=== PATIENT | female | born 2000 | race Caucasian/White ===

== ENCOUNTER 2022-10-15 07:23 | Inpatient (IN) | payer OTHER, MEDICAID, SELFPAY ==
[2022-10-15] VITALS (126 sets, daily range): BP systolic 83–154; BP diastolic 39–133; PULSE 70–139; RESP 16–20; TEMP 36.7–37.4; O2SAT 81–100; BMI 23.4
[2022-10-15] MEDS: LACTATED RINGERS 1,000 ML 125 ML IV CONT ×3 (08:10→15:30)
[2022-10-15] MEDS: AMPICILLIN 2 GM/NS 100 ML 2 GM/100 ML BAG IVPB (08:10)
[2022-10-15] MEDS: TERBUTALINE SULFATE 1 MG/ML VIAL 0.25 MG SUB-Q (08:19)
[2022-10-15 08:21] LABS: Basophils Absolute Auto 0.1 K/mm3 (0.0-0.1); Basophils Percent Auto 0.4 % (0.2-1.2); Eosinophils Absolute Auto 0.1 K/mm3 (0-0.3); Eosinophils Percent Auto 0.4 % (0-4.4); Hematocrit 41.9 % (37.0-47.0); Hemoglobin 14.5 g/dL (12.0-15.0); Immature Granulocyte Absolute 0.15 K/mm3 (0.00-0.031); Immature Granulocyte Percent A 0.8 % (0-0.5); Immature Platelet Fraction Pct 20.1 % (0.9-11.2); Lymphocytes Absolute Auto 1.59 K/mm3 (0.9-3.2); Mean Corpuscular HGB Conc 34.6 g/dl (32-36); Mean Corpuscular Volume 89.5 fl (80-100); Mean Platelet Volume 12.9 fl (7.4-10.4); Monocytes Absolute Auto 0.6 K/mm3 (0.1-0.6); Monocytes Percent Auto 3.2 % (2.6-8.5); Neutrophils Absolute Auto 17.5 K/mm3 (1.3-6.7); Neutrophils Percent Auto 87.2 % (45.5-73.1); Platelet Count Result 165 k/mm3 (150-375); Red Blood Count 4.68 M/mm3 (4.2-5.4)
[2022-10-15] MEDS: BETAMETHASONE SOD PHOS/ACETATE 30 MG/5 ML VIAL 12 MG IM (08:25)
--- NOTE | 2022-10-15 08:55 | PM.IMHP ---
H&P: HPI History of Present Illness Date/Time: 10/15/22 0855 Chief Complaint: Contractions Narrative: 22 y/o G1 with LMP 02/10/22 giving a due date of 11/17/22, consistent with 12 weeks ultrasound, putting her at 35 2/7 weeks today. She is a patient of a Dr. Smith in [place], and planned to deliver at [facility]. She began to have painful contractions around 7 this morning, so she came to the closest hospital. I am customer relations coordinator for walk-in patients. She says her has been uncomplicated, that she doesn't have HTN or DM. She has not had a GBS culture yet. Contractions have persisted despite IV fluids and a dose of terbutaline. She had received prophylactic ampicillin as well as a dose of betamethasone IM. Review of Systems Review of Systems: All systems reviewed & are unremarkable except as noted in HPI and below [facility] Surgical History Surgical History History of tonsillectomy Social History Social History Smoking status: Never smoker Substance use: never Lack of Transportation: No Lack of Food: Never True Current Housing: I Have Housing Concerned About Future Housing: No Difficulty Paying Gas/Electric Bills: No Difficulty Paying for Meds: No Currently Unemployed: No Education: Bachelor's Degree Difficulty w/ Childcare or Family Care: No Spiritual care concerns: No Meds Home Medications and Allergies Home Medications Medication Instructions Recorded Confirmed Type docusate sodium 100 mg capsule 325 mg PO 10/15/22 History ferrous sulfate 325 mg (65 mg 325 mg 10/15/22 History iron) tablet (FeroSul) Allergies Allergy/AdvReac Type Severity Reaction Status Date / Time No Known Allergies Allergy Verified 10/15/22 08:06 Vital Signs Vital Signs - 24 hr 10/15/22 08:16 10/15/22 08:21 10/15/22 08:26 Temperature Pulse Rate Respiratory Rate Blood Pressure Pulse Oximetry 100 100 100 10/15/22 08:31 10/15/22 08:36 10/15/22 08:41 Temperature Pulse Rate Respiratory Rate Blood Pressure Pulse Oximetry 100 100 100 10/15/22 07:47 10/15/22 08:46 10/15/22 09:35 Temperature 37.1 C Pulse Rate 123 H 116 H Respiratory Rate Blood Pressure 133/84 136/76 Pulse Oximetry 100 10/15/22 09:44 10/15/22 09:45 10/15/22 09:50 Temperature Pulse Rate 116 H Respiratory Rate Blood Pressure 149/96 H Pulse Oximetry 100 87 L 10/15/22 09:50 10/15/22 09:51 10/15/22 09:56 Temperature Pulse Rate Respiratory Rate Blood Pressure Pulse Oximetry 87 L 98 100 10/15/22 10:01 10/15/22 10:06 10/15/22 10:11 Temperature Pulse Rate 119 H 129 H Respiratory Rate Blood Pressure 124/61 115/61 Pulse Oximetry 100 100 100 10/15/22 10:12 10/15/22 10:14 10/15/22 10:16 Temperature Pulse Rate 139 H 120 H Respiratory Rate Blood Pressure 93/44 L 83/43 L Pulse Oximetry 100 10/15/22 10:17 10/15/22 10:18 10/15/22 10:20 Temperature Pulse Rate 108 H 99 105 H Respiratory Rate Blood Pressure 111/45 L 128/69 118/59 L Pulse Oximetry 10/15/22 10:21 10/15/22 10:22 10/15/22 10:25 Temperature Pulse Rate 106 H 108 H Respiratory Rate Blood Pressure 116/64 117/65 Pulse Oximetry 100 10/15/22 10:26 10/15/22 10:31 10/15/22 10:36 Temperature Pulse Rate 109 H 105 H Respiratory Rate Blood Pressure 86/69 L 122/48 L Pulse Oximetry 100 100 100 10/15/22 10:41 10/15/22 10:45 10/15/22 10:46 Temperature Pulse Rate 124 H 105 H Respiratory Rate Blood Pressure 136/58 L 107/53 L Pulse Oximetry 100 100 10/15/22 10:51 10/15/22 10:55 10/15/22 10:56 Temperature Pulse Rate 105 H 116 H Respiratory Rate Blood Pressure 115/56 L 100/39 L Pulse Oximetry 100 100 10/15/22 11:00 10/15/22 11:05 10/15/22 11:06 Temperature 36.8 C Pulse Rate 100 100 Resp
[2022-10-15 09:22] LABS: HIV 1/2 Ab P24 Ag Result Negative (Negative)
[2022-10-15 09:31] LABS: Hepatitis B Surface Antigen Negative (Negative)
[2022-10-15 09:32] LABS: Rubella IgG Antibody > 120.0 IU/ML
[2022-10-15 09:34] LABS: Appearance Urine Cloudy (Clear); Bacteria Urine None Seen /hpf; Bilirubin Urine Negative (Negative); Blood Urine 2+ (Negative); Color Urine Yellow (Yellow); Glucose Urine UA Negative (Negative); Ketones Urine Trace mg/dL (Negative); Leukocyte Esterase Ur 2+ LEU/UL (Negative); Nitrate Urine Negative (Negative); Non Pathogenic Casts 0-2; Protein Urine 1+ mg/dL (Negative); RBC Urine 21-50 /hpf (0-2); Specific Grav Ur 1.023 (1.001-1.035); Squamous Epithelial Cell Urine Occasional /hpf (Few); WBC Urine 21-50 /hpf
[2022-10-15 09:39] LABS: Add Urine Microscopic? YES
--- NOTE | 2022-10-15 09:41 | WPDANESEPP ---
Anes - Eval Pre Procedure Procedure: Labor epidural Date/Time: 10/15/22 09:41 Surgeon: Ana Paula Preop Diagnosis: Pain during labor Pre Op Diagnosis: Contractions Patient Data Age: 22 Gender: F Height: Weight: Last Vital Signs Temp 37.1 C 10/15/22 07:47 Pulse 116 H 10/15/22 09:35 BP 136/76 10/15/22 09:35 Pulse Ox 100 10/15/22 08:46 Allergies Allergy/AdvReac Type Severity Reaction Status Date / Time No Known Allergies Allergy Verified 10/15/22 08:06 Laboratory Tests 10/15/22 10/15/22 10/15/22 08:10 08:10 08:10 WBC 20.0 K/mm3 H K/mm3 (4.5-10.0) RBC 4.68 M/mm3 M/mm3 (4.2-5.4) Hgb 14.5 g/dL g/dL (12.0-15.0) Hct 41.9 % % (37.0-47.0) MCV 89.5 fl fl (80-100) MCH 31.0 pg pg (26-34) MCHC 34.6 g/dl g/dl (32-36) RDW 13.0 % % (11.5-14.5) Plt Count 165 k/mm3 k/mm3 (150-375) MPV 12.9 fl H fl (7.4-10.4) Immature Gran % (Auto) 0.8 % H % (0-0.5) Neut % (Auto) 87.2 % H % (45.5-73.1) Lymph % (Auto) 8.0 % L % (18.3-44.2) Placer % (Auto) 3.2 % % (2.6-8.5) Eos % (Auto) 0.4 % % (0-4.4) Baso % (Auto) 0.4 % % (0.2-1.2) Lymph # (Auto) 1.59 K/mm3 K/mm3 (0.9-3.2) Placer # (Auto) 0.6 K/mm3 K/mm3 (0.1-0.6) Eos # (Auto) 0.1 K/mm3 K/mm3 (0-0.3) Baso # (Auto) 0.1 K/mm3 K/mm3 (0.0-0.1) Abs Immat Gran (auto) 0.15 K/mm3 H K/mm3 (0.00-0.031) Absolute Neuts (auto) 17.5 K/mm3 H K/mm3 (1.3-6.7) Absolute Nucleated RBC 0.0 K/mm3 K/mm3 (0.0-0.012) Nucleated RBC % 0.0 % % (0.0-0.2) % Immature Plt Fraction 20.1 % H % (0.9-11.2) Urine Color Urine Appearance Urine pH Ur Specific [place] Urine Protein Urine Glucose (UA) Urine Ketones Ur Blood (Man) Urine Nitrate Urine Bilirubin Urine Urobilinogen Leukocyte Esterase Rfl Urine RBC Urine WBC Ur Squamous Epith Cells Urine Bacteria Urine Casts Urine Opiates Screen Urine Methadone Screen Ur Barbiturates Screen Ur Phencyclidine Scrn Ur Amphetamine Screen U Benzodiazepines Scrn Urine Cocaine Screen U Cannabinoids Screen RPR Pending Hep Bs Antigen Negative (Negative) HIV 1&2 Ab/P24 Ag 4thGn Rubella IgG Antibody > 120.0 IU/ML IU/ML (10 - ) Blood Type Antibody Screen 10/15/22 10/15/22 10/15/22 08:10 08:10 09:19 WBC RBC Hgb Hct MCV MCH MCHC RDW Plt Count MPV Immature Gran % (Auto) Neut % (Auto) Lymph % (Auto) [place] % (Auto) Eos % (Auto) Baso % (Auto) Lymph # (Auto) [place] # (Auto) Eos # (Auto) Baso # (Auto) Abs Immat Gran (auto) Absolute Neuts (auto) Absolute Nucleated RBC Nucleated RBC % % Immature Plt Fraction Urine Color Yellow (Yellow) Urine Appearance Cloudy H (Clear) Urine pH 8.0 (5.0-9.0) Ur Specific [place] 1.023 (1.001-1.035) Urine Protein 1+ mg/dL H mg/dL (Negative) Urine Glucose (UA) Negative mg/dL mg/dL (Negative) Urine Ketones Trace mg/dL mg/dL (Negative) Ur Blood (Man) 2+ H (Negative) Urine Nitrate Negative (Negative) Urine Bilirubin Negative (Negative) Urine Urobilinogen 1.0 mg/dL m
[2022-10-15 09:44] LABS: Rapid Plasma Reagin Non-Reactive (NonReactive)
[2022-10-15 09:55] LABS: Amphetamine Screen Urine Negative (Negative); Barbiturate Screen Urine Negative (Negative); Benzodiazepines Screen Urine Negative (Negative); Cannabinoid Screen Urine Negative (Negative); Cocaine Screen Urine Negative (Negative); Methadone Screen Urine Negative (Negative); Opiate Screen Urine Negative (Negative); Phencyclidine Screen Urine Negative (Negative)
--- NOTE | 2022-10-15 10:40 | LDADM ---
This patient, Kristin Yap, was admitted to Labor/Delivery/Recovery 107 on 10/15/22 at 07:23. Plans for labor, pain management and were discussed with patient. Patient/family oriented to hospital policies and general routines including ID bracelet, bed and alarms, visiting hours, pain management, procedures, bathroom and other care routines, personal items, smoking policy, room service/diet and guest tray routines, security routines, and visiting hours. Patient/Family are encouraged to report perceived risks to care and to ask questions if they do not understand what they are told or what they should do. See OBIX for further documentation.
[2022-10-15] MEDS: AMPICILLIN 1 GM/NS 50 ML 1 GM/50 ML BAG IVPB (12:10)
--- NOTE | 2022-10-15 13:05 | PM.OBPNLAB ---
Pain Control Date/time seen: 10/15/22 13:05 Now comfortable with epidural. She just asked whether the baby was still sideways. AVSS NST good variability TOCO: contractions every 2-5 min Cervix 4-5/90/-1. AROM with clear fluid. IUPC placed. Bedside ultrasound by me confirms vertex presentation. A: Labor at 35 2/7 weeks. P: Continue present management. Augment labor as needed.
[2022-10-15] MEDS: OXYTOCIN 30 UNITS/NS 500 ML 30 UNITS/500 ML BAG 999 UNITS IV CONT (15:57)
--- NOTE | 2022-10-15 16:03 | PM.OBPRVD ---
OB - Delivery Note Procedure Delivery date: 10/15/22 Procedure: Delivery augmentation: Rupture of Membranes Delivery monitor: External FHT, External Uterine and Internal Uterine Route of delivery: Laceration Description: None Specimen: Yes (cord blood, placenta) Quantitative Blood Loss (ml): 120 Anesthesia type: Epidural Disposition: PACU Complications: None Narrative: 22 y/o G1 at 35 4/7 weeks gestation who presented to the hospital with contractions. Labor was diagnosed. She was given ampicillin. She received an epidural for pain control. Amniotomy was performed with return of clear fluid. Her labor progressed and her cervix dilated completely. She pushed with good effort and delivered the 's head to the perineum, followed by the body. The nose and mouth were bulb suctioned. After a delay, the cord was clamped and cut. The was handed off the field. Cord blood was collected. The placenta delivered spontaneously and was grossly normal in appearance. The usual 3 vessel cord was noted. There were no lacerations. Needle and instrument counts were correct. The patient was taken to recovery room in stable condition. The went to the nursery in stable condition. I was present and scrubbed for the entire delivery. Baby Date of : 10/15/22 Time of : 15:53 Weeks of gestation at delivery: 35 Infant gender: Female Weight (pounds): 5 Weight (ounces): 6 presentation: vertex position: Left Occiput Anterior Placenta delivery description: Spontaneous and Normal Configuration Cord Vessel Description: 3 Vessels and Delayed Cord Clamping score one minute: 9 score five minutes: 9
--- NOTE | 2022-10-15 16:04 | PM.OBDSVD ---
DS: Admitting Diagnosis Discharge Date 10/17/22 Admitting Diagnosis IUP at 35 weeks labor DS: Discharge Diagnosis Discharge Diagnosis (1) delivery, delivered: Code(s): O60.10X0 - labor with delivery, unspecified trimester, not applicable or unspecified Status: Acute (2) Gestational hypertension: Code(s): O13.9 - Gestational [-induced] hypertension without significant proteinuria, unspecified trimester Status: Acute OB - DS: Summary OB Procedures : NST, Ultrasound and PTL Mgmt OB Procedures Intrapartum: Spontaneous Vag Delivery and GBS prophylaxis OB Procedures: : None Time Spent with Patient Time attestation: Total time spent providing and/or coordinating discharge services: DS: Data Data Completed and Pending Labs on day of discharge: Labs from last 24 hours 10/15/22 10/15/22 10/15/22 09:19 09:19 08:10 WBC RBC Hgb Hct MCV MCH MCHC RDW Plt Count MPV Immature Gran % (Auto) Neut % (Auto) Lymph % (Auto) [place] % (Auto) Eos % (Auto) Baso % (Auto) Lymph # (Auto) [place] # (Auto) Eos # (Auto) Baso # (Auto) Abs Immat Gran (auto) Absolute Neuts (auto) Absolute Nucleated RBC Nucleated RBC % % Immature Plt Fraction Urine Color Yellow Urine Appearance Cloudy H Urine pH 8.0 Ur Specific [place] 1.023 Urine Protein 1+ H Urine Glucose (UA) Negative Urine Ketones Trace Ur Blood (Man) 2+ H Urine Nitrate Negative Urine Bilirubin Negative Urine Urobilinogen 1.0 Leukocyte Esterase Rfl 2+ H Urine RBC 21-50 H Urine WBC 21-50 Ur Squamous Epith Cells Occasional Urine Bacteria None seen Urine Casts 0-2 Urine Opiates Screen Negative Urine Methadone Screen Negative Ur Barbiturates Screen Negative Ur Phencyclidine Scrn Negative Ur Amphetamine Screen Negative U Benzodiazepines Scrn Negative Urine Cocaine Screen Negative U Cannabinoids Screen Negative RPR Hep Bs Antigen HIV 1&2 Ab/P24 Ag 4thGn Rubella IgG Antibody Blood Type B Positive Antibody Screen Negative 10/15/22 10/15/22 10/15/22 08:10 08:10 08:10 WBC RBC Hgb Hct MCV MCH MCHC RDW Plt Count MPV Immature Gran % (Auto) Neut % (Auto) Lymph % (Auto) [place] % (Auto) Eos % (Auto) Baso % (Auto) Lymph # (Auto) [place] # (Auto) Eos # (Auto) Baso # (Auto) Abs Immat Gran (auto) Absolute Neuts (auto) Absolute Nucleated RBC Nucleated RBC % % Immature Plt Fraction Urine Color Urine Appearance Urine pH Ur Specific [place] Urine Protein Urine Glucose (UA) Urine Ketones Ur Blood (Man) Urine Nitrate Urine Bilirubin Urine Urobilinogen Leukocyte Esterase Rfl Urine RBC Urine WBC Ur Squamous Epith Cells Urine Bacteria Urine Casts Urine Opiates Screen Urine Methadone Screen Ur Barbiturates Screen Ur Phencyclidine Scrn Ur Amphetamine Screen U Benzodiazepines Scrn Urine Cocaine Screen U Cannabinoids Screen RPR Non-reactive Hep Bs Antigen Negative HIV 1&2 Ab/P24 Ag 4thGn Negative Rubella IgG Antibody > 120.0 Blood Type Antibody Screen 10/15/22 08:10 WBC 20.0 H RBC 4.68 Hgb 14.5 Hct 41.9 MCV 89.5 MCH 31.0 MCHC 34.6 RDW 13.0 Plt Count 165 MPV 12.9 H Immature Gran % (Auto) 0.8 H Neut % (Auto) 87.2 H Lymph % (Auto) 8.0 L [place] % (Auto) 3.2 Eos % (Auto) 0.4 Baso % (Auto) 0.4 Lymph # (Auto) 1.59 [place] # (Auto) 0.6 Eos # (Auto) 0.1 Baso # (Auto) 0.1 Abs Immat Gran (auto) 0.15 H Absolute Neuts (auto) 17.5 H Absolute Nucleated RBC 0.0 Nucleated RBC % 0.0 % Immature Plt Fraction 20.1 H Urine Color Urine Appearance Urine pH Ur Specific [place] Urine Protein Urine Glucose (UA) Urine Ketones Ur Blood (Man)
[2022-10-15] MEDS: OXYTOCIN 30 UNITS/NS 500 ML 30 UNITS/500 ML BAG 125 UNITS IV CONT (16:30)
[2022-10-15] MEDS: BENZOCAINE 20% AER SPR (*SP) 56 GM CAN 1 SPRAY TOPICAL (19:01)
[2022-10-15] MEDS: WITCH HAZEL 40 PADS 1 PAD TOPICAL (19:01)
[2022-10-16] VITALS: BP 135/97; PULSE 87; RESP 18; TEMP 36.8; O2SAT 99
[2022-10-16 05:17] LABS: Basophils Absolute Auto 0.1 K/mm3 (0.0-0.1); Basophils Percent Auto 0.2 % (0.2-1.2); Eosinophils Absolute Auto 0.1 K/mm3 (0-0.3); Eosinophils Percent Auto 0.2 % (0-4.4); Hematocrit 34.3 % (37.0-47.0); Hemoglobin 11.8 g/dL (12.0-15.0); Immature Granulocyte Absolute 0.48 K/mm3 (0.00-0.031); Immature Granulocyte Percent A 1.6 % (0-0.5); Immature Platelet Fraction Pct 20.1 % (0.9-11.2); Lymphocytes Absolute Auto 1.53 K/mm3 (0.9-3.2); Lymphocytes Percent Auto 5.1 % (18.3-44.2); Mean Corpuscular HGB Conc 34.4 g/dl (32-36); Mean Corpuscular Hemoglobin 30.2 pg (26-34); Mean Corpuscular Volume 87.7 fl (80-100); Mean Platelet Volume 13.7 fl (7.4-10.4); Monocytes Absolute Auto 1.5 K/mm3 (0.1-0.6); Neutrophils Absolute Auto 26.3 K/mm3 (1.3-6.7); Neutrophils Percent Auto 87.9 % (45.5-73.1); Platelet Count Result 142 k/mm3 (150-375); Red Blood Count 3.91 M/mm3 (4.2-5.4); Red Cell Distribution Width 12.9 % (11.5-14.5); White Blood Count 29.9 K/mm3 (4.5-10.0)
[2022-10-16 05:42] LABS: Alanine Aminotransferase 16 U/L (6-35); Albumin Level 3.3 g/dL (3.5-5.1); Alkaline Phosphatase 161 U/L (38-126); Anion Gap 3 mmol/L (8-16); Aspartate Amino Transferase 33 U/L (14-36); Bilirubin,Total 0.6 mg/dL (0.2-1.3); Blood Urea Nitrogen 8 mg/dL (7-17); Calcium 9.5 mg/dL (8.4-10.2); Carbon Dioxide 24 mmol/L (22-30); Chloride 105 mmol/L (98-107); Estimated CRCL calculation 102 ml/min; Estimated Glomerular Filt Rate > 60; Glucose 108 mg/dL (65-110); Potassium 4.3 mmol/L (3.4-5.0); Sodium 132 mmol/L (137-145)
[2022-10-16 08:00] VITALS: BP 136/91; PULSE 80; RESP 16; TEMP 36.6; O2SAT 100
--- NOTE | 2022-10-16 08:02 | WPDANLDPN2 ---
Anes-Prog Note L&D Date/Time: 10/16/22 08:02 Neuro status: Neuro function grossly intact. Cardiovascular status: normal Respiratory status: normal Airway patency: baseline Mental status: baseline Post-Op hydration status: normal Vital Signs: Last Vital Signs Temp 36.8 C 10/16/22 00:00 Pulse 87 10/16/22 00:00 Resp 18 10/16/22 00:00 BP 135/97 H 10/16/22 00:00 Pulse Ox 99 10/16/22 00:00 O2 Del Method Room Air 10/15/22 17:09 Pain score (VAS): 2 I/O: Intake & Output 10/15/22 10/16/22 10/16/22 23:59 07:59 15:59 Intake Total 500 Output Total 60 Balance 440 Post-procedural complaints: none Patient feedback: Patient satisfied with anesthetic care.
[2022-10-16] MEDS: IBUPROFEN 600 MG TABLET PO ×2 (08:53→19:12)
[2022-10-16] MEDS: MULTIVIT/MIN/PREN/FOL AC/IRON TABLET 1 TAB PO (08:55)
[2022-10-16] MEDS: DOCUSATE SODIUM 100 MG CAPSULE PO ×2 (08:56→20:22)
--- NOTE | 2022-10-16 11:03 | PM.OBPNVD ---
OB - PN: Subj Subjective Date/time seen: 10/16/22 11:03 Narrative: Pain OK. OB - PN: Obj Data Labs 10/16/22 04:26 10/16/22 04:26 Labs: Laboratory Results - last 24 hr 10/16/22 10/16/22 04:26 04:26 WBC 29.9 H RBC 3.91 L Hgb 11.8 L Hct 34.3 L MCV 87.7 MCH 30.2 MCHC 34.4 RDW 12.9 Plt Count 142 L MPV 13.7 H Immature Gran % (Auto) 1.6 H Neut % (Auto) 87.9 H Lymph % (Auto) 5.1 L [place] % (Auto) 5.0 Eos % (Auto) 0.2 Baso % (Auto) 0.2 Lymph # (Auto) 1.53 [place] # (Auto) 1.5 H Eos # (Auto) 0.1 Baso # (Auto) 0.1 Abs Immat Gran (auto) 0.48 H Absolute Neuts (auto) 26.3 H Absolute Nucleated RBC 0.0 Nucleated RBC % 0.0 % Immature Plt Fraction 20.1 H Sodium 132 L Potassium 4.3 Chloride 105 Carbon Dioxide 24 Anion Gap 3 L BUN 8 Creatinine 0.60 L Estim Creat Clear Calc 102 Estimated GFR > 60 Glucose 108 Calcium 9.5 Total Bilirubin 0.6 AST 33 ALT 16 Alkaline Phosphatase 161 H Total Protein 6.0 L Albumin 3.3 L OB - PN A/P Assessment and Plan (1) delivery, delivered: Code(s): O60.10X0 - labor with delivery, unspecified trimester, not applicable or unspecified Status: Acute Plan Comments: A: PPD#1, doing well. Mildly elevated bp, but asymptomatic and exam / labs otherwise essentially unremarkable (platelets noted to be 142k). P: Routine care. Exam Psych: Other: AVSS ABD soft, nontender, fundus firm EXT nontender
[2022-10-16 12:15] VITALS: BP 119/74; PULSE 70; RESP 16; TEMP 36.8; O2SAT 100
[2022-10-16 19:15] VITALS: BP 131/78; PULSE 81; RESP 16; TEMP 36.5
[2022-10-17] MEDS: IBUPROFEN 600 MG TABLET PO ×2 (05:30→14:45)
[2022-10-17 07:55] VITALS: BP 130/90; PULSE 65; RESP 16; TEMP 36.4; O2SAT 100
[2022-10-17] MEDS: DOCUSATE SODIUM 100 MG CAPSULE PO (09:06)
[2022-10-17] MEDS: MULTIVIT/MIN/PREN/FOL AC/IRON TABLET 1 TAB PO (09:06)
--- NOTE | 2022-10-17 10:11 | PM.OBPNVD ---
OB - PN: Subj Subjective Date/time seen: 10/17/22 10:11 Narrative: Pain OK. Would like to go home. OB - PN: Obj Data Labs 10/16/22 04:26 10/16/22 04:26 OB - PN A/P Plan Comments: A: PPD#2, doing well. BP stable without medication. P: Home to f/u bp check in 1 week. Time Spent With Patient Time with patient: less than 15 minutes Exam Psych: Other: AVSS ABD soft, nontender, fundus firm EXT nontender
[2022-10-18 09:52] VITALS: BP 110/68; PULSE 87; RESP 20; TEMP 36.4; O2SAT 97
== END 2022-10-17 17:20 | disposition home or self-care (01) | DRG 807 ==
LOC: ANHLDR 16:05 → ANHOB2 19:43
PROVIDERS: Admitting Provider Obstetrics & Gynecology; Visit Provider Obstetrics & Gynecology
DX: O60.14X0 Preterm labor third trimester with preterm delivery third trimester, not applicable or unspecified (principal); Z37.0 Single live birth; Z3A.35 35 weeks gestation of pregnancy
CPT/HCPCS: 36415; 80053; 80307; 81001; 85025; 85055; 86592; 86703; 86762; 86850; 86900; 86901; 87086; 87340; 88307; A9270; G0432; J0290; J0702; J2590; J2795; J3105; J7120